=== PATIENT | female | born 1960 | race Caucasian/White ===

== ENCOUNTER 2021-06-11 18:02 | Observation (INO) ==
[2021-06-11] MEDS ORDERED: Acetaminophen 325 MG TABLET PO ONE (18:40)
[2021-06-11] MEDS ORDERED: 0.9 % Sodium Chloride 500 ML IVC ONE ×2 (18:40→20:54)
[2021-06-11] MEDS ORDERED: Ondansetron 4 MG/2 ML VIAL IVP ONE (18:58)
[2021-06-11 19:06] LABS: Hematocrit 39.1 % (35.3-44.9); Immature Granulocytes % 0.6 % (0-4); Immature Platelets 2.9 % (1.1-6.1); Lymphocytes # 0.4 K/mcL (0.6-4.6); Lymphocytes % 11.7 %; Mean Corpuscular HGB Conc 30.7 g/dL (31.6-35.5); Mean Corpuscular Hemoglobin 28.3 pg (28.0-33.3); Mean Corpuscular Volume 92.2 fL (83.0-100.0); Mean Platelet Volume 10.5 fL (9.4-12.4); Monocytes # 0.2 K/mcL (0.0-1.3); Neutrophils # 2.7 K/mcL (1.6-8.9); Red Blood Count 4.24 M/mcL (3.82-4.97); Red Cell Distribution Width 12.6 % (11.5-14.5); Segmented Neutrophils % 81.7 %; White Blood Count 3.3 K/mcL (4.3-11.1)
[2021-06-11 19:30] LABS: Platelet Count 87 K/mcL (140-400)
[2021-06-11 19:31] LABS: Albumin 3.9 g/dL (3.5-5.7); Albumin/Globulin Ratio 1.2 (1.1-2.2); Bilirubin,Total 0.4 mg/dL (0.3-1.0); Calcium 9.9 mg/dL (8.6-10.3); Globulin 3.3 g/dL (2.4-3.5); Platelet Estimate Decreased (Normal); Potassium 4.4 mEq/L (3.5-5.1); Total Protein 7.2 g/dL (6.4-8.9); Troponin I 0.04 ng/mL (< 0.04)
[2021-06-12 04:43] LABS: INR 1.2; Prothrombin Time 13.2 Seconds (9.4-12.1)
[2021-06-12 04:45] LABS: Activated Partial Thrombo Time 29.1 Seconds (26.0-36.0)
[2021-06-12] MEDS ORDERED: *HR* Heparin 5,000 UNIT/ML VIAL IVP ONE (05:17)
[2021-06-12] MEDS ORDERED: *HR* Heparin 5,000 UNIT/ML VIAL IVP PRN ×2 (05:17)
[2021-06-12] MEDS ORDERED: Heparin 25,000UNIT/250ML 1/2NS 25,000 UNIT/250 ML IV.SOLN IVC SCH (05:30)
[2021-06-12 05:46] LABS: Heparin anti-factor XA UFH < 0.04 IU/mL (0.30-0.70)
[2021-06-12] MEDS ORDERED: Naloxone 0.4 MG/ML INJ IVP PRN (06:01)
[2021-06-12 12:33] LABS: Mean Platelet Volume 10.4 fL (9.4-12.4)
[2021-06-12 12:35] LABS: Hematocrit 35.6 % (35.3-44.9); Hemoglobin 10.6 g/dL (11.5-15.4); Immature Platelets 2.7 % (1.1-6.1); Mean Corpuscular HGB Conc 29.8 g/dL (31.6-35.5); Mean Corpuscular Hemoglobin 27.8 pg (28.0-33.3); Mean Corpuscular Volume 93.4 fL (83.0-100.0); Red Blood Count 3.81 M/mcL (3.82-4.97); Red Cell Distribution Width 12.7 % (11.5-14.5); White Blood Count 2.8 K/mcL (4.3-11.1)
[2021-06-12] MEDS ORDERED: Ondansetron 4 MG/2 ML VIAL IVP PRN (12:56)
[2021-06-12] MEDS ORDERED: Acetaminophen 325 MG TABLET PO PRN (12:57)
[2021-06-12 12:58] LABS: Troponin I 0.06 ng/mL (< 0.04)
[2021-06-12 12:59] LABS: Calcium 9.4 mg/dL (8.6-10.3); Potassium 3.9 mEq/L (3.5-5.1)
[2021-06-12] MEDS ORDERED: Mycophenolate Sodium (DR) 180 MG TABLET.DR PO SCH (16:30)
[2021-06-12] MEDS: Mycophenolate Sodium (DR) 180 MG TABLET.DR PO SCH (17:11)
[2021-06-12] MEDS: Metoprolol XL (24 HR) Succ 50 MG TAB.ER.24H PO SCH (17:11)
[2021-06-12] MEDS: TACROLIMUS 0.5 MG PO SCH ×2 (20:16→23:23)
[2021-06-13 05:09] LABS: Eosinophils % 0.4 %; Hemoglobin 10.7 g/dL (11.5-15.4)
[2021-06-13 05:11] LABS: Hematocrit 34.8 % (35.3-44.9); Immature Granulocytes % 0.9 % (0-4); Immature Platelets 2.3 % (1.1-6.1); Lymphocytes # 0.5 K/mcL (0.6-4.6); Lymphocytes % 23.6 %; Mean Corpuscular HGB Conc 30.7 g/dL (31.6-35.5); Mean Corpuscular Hemoglobin 28.5 pg (28.0-33.3); Mean Corpuscular Volume 92.8 fL (83.0-100.0); Mean Platelet Volume 10.2 fL (9.4-12.4); Monocytes # 0.3 K/mcL (0.0-1.3); Monocytes % 11.1 %; Red Blood Count 3.75 M/mcL (3.82-4.97); Red Cell Distribution Width 12.7 % (11.5-14.5); White Blood Count 2.3 K/mcL (4.3-11.1)
[2021-06-13 05:12] LABS: Neutrophils # 1.5 K/mcL (1.6-8.9); Platelet Count 89 K/mcL (140-400)
[2021-06-13 05:26] LABS: Calcium 9.6 mg/dL (8.6-10.3)
[2021-06-13] MEDS: Cholecalciferol (D-3) 1,000 UNIT (25MCG) TABLET PO SCH (08:18)
[2021-06-13] MEDS: calcitrioL 0.25 MCG CAPSULE PO SCH (08:19)
[2021-06-13] MEDS: Metoprolol XL (24 HR) Succ 50 MG TAB.ER.24H PO SCH (08:19)
[2021-06-13] MEDS: Mycophenolate Sodium (DR) 180 MG TABLET.DR PO SCH ×2 (08:19→16:06)
[2021-06-13] MEDS ORDERED: TACROLIMUS 0.5 MG PO SCH (09:00)
[2021-06-13] MEDS ORDERED: Sulfamethoxazole/Trimeth DS 1 EACH TABLET PO SCH (09:00)
[2021-06-13 14:31] LABS: Adenovirus F 40/41 PCR Not detected (Not detect); Astrovirus PCR Not detected (Not detect); C.difficile Toxin A/B Gene PCR Not detected (Not detect); Campylobacter by PCR Not detected (Not detect); Cryptosporidium by PCR Not detected (Not detect); Cyclospora cayetanensis PCR Not detected (Not detect); E. coli O157 by PCR Not detected (Not detect); Entamoeba histolytica PCR Not detected (Not detect); Enteroaggregative E.coli(EAEC) Not detected (Not detect); Enteropathogenic E.coli(EPEC) Not detected (Not detect); Enterotoxigenic E.coli (ETEC) Not detected (Not detect); Giardia lamblia PCR Not detected (Not detect); Norovirus GI/GII PCR Not detected (Not detect); Plesiomonas shigelloides PCR Not detected (Not detect); Rotavirus A PCR Not detected (Not detect); Salmonella PCR Not detected (Not detect); Sapovirus PCR Not detected (Not detect); Shig/EnteroinvasiveE coli EIEC Not detected (Not detect); Shigalike tox-prod E coli STEC Not detected (Not detect); Vibrio PCR Not detected (Not detect); Vibrio cholerae PCR Not detected (Not detect); Yersinia enterocolitica PCR Not detected (Not detect)
[2021-06-13] MEDS: TACROLIMUS 0.5 MG PO SCH (22:03)
[2021-06-14 10:57] VITALS: BP 112/68; PULSE 67; TEMP 98; O2SAT 93
[2021-06-14] MEDS: Cholecalciferol (D-3) 1,000 UNIT (25MCG) TABLET PO SCH (11:09)
[2021-06-14] MEDS: Metoprolol XL (24 HR) Succ 50 MG TAB.ER.24H PO SCH (11:09)
[2021-06-14] MEDS: calcitrioL 0.25 MCG CAPSULE PO SCH (11:09)
[2021-06-14] MEDS: Mycophenolate Sodium (DR) 180 MG TABLET.DR PO SCH (11:09)
== END 2021-06-14 17:35 | disposition home or self-care (01) ==
LOC: EMEROOARM 18:02 → 2ANU 18:02 → SUATTDRO 06-12 14:15 → 2ANU 06-12 15:54
PROVIDERS: ADMIT Family Medicine; ATTEND Internal Medicine